=== PATIENT | female | born 1945 | race Caucasian/White ===

== ENCOUNTER 2019-11-12 10:37 | Inpatient (IN) ==
[2019-11-12] MEDS ORDERED: PIPERACILLIN/TAZOBACTAM 3,375 MG in SODIUM CHLORIDE 0.9% 100 ML IV STA (11:02)
[2019-11-12] MEDS ORDERED: SODIUM CHLORIDE 0.9% 1,000 ML IV STA (11:02)
[2019-11-12] MEDS ORDERED: VANCOMYCIN INJ 1,000 MG in SODIUM CHLORIDE 0.9% 250 ML IV STA (11:02)
[2019-11-12 11:50] LABS: Basophils % 0.5 % (0.0-0.8); Eosinophils % 0.4 % (0.00-10.9); Hematocrit 30.8 VOL% (35.7-47.0); Hemoglobin 10.1 GM/DL (12.0-16.0); Immature Granulocytes % 0.7 %; Immature Granulocytes Absolute 0.06 #; Lymphocytes # 0.9 10*3/uL (1.4-4.0); Lymphocytes % 10.7 % (21.3-54.2); Mean Corpuscular HGB Conc 32.8 GM/DL (32-36); Mean Platelet Volume 9.6 FL (9.6-12.0); Neutrophils % 71.7 % (38.7-73.9); Platelet Count 217 T/CUMM (130-400); Red Cell Distribution Width 14.9 % (9.3-17.3); White Blood Count 8.2 T/CUMM (4-12)
[2019-11-12 12:11] LABS: INR 1.2; PT Patient Result 12.3 SECS (9.8-11.9)
[2019-11-12 12:18] LABS: Alanine Aminotransferase 19 U/L (13-56); Albumin 2.8 G/DL (3.4-5.0); Alkaline Phosphatase 152 U/L (45-117); Amylase 26 U/L (25-115); Aspartate Amino Transferase 51 U/L (0-37); Blood Urea Nitrogen 30 MG/DL (7-18); Calcium 13.6 MG/DL (8.5-10.1); Estimated Glom Filtration Rate 22 ML/MIN; Ferritin 310.4 ng/ml (8-252); Glucose 107 MG/DL (74-106); Osmolality,Calculated 262.1 MOS/KG (273-304); Total Protein 6.5 G/DL (6.4-8.3)
[2019-11-12 12:19] LABS: Troponin I 0.286 NG/ML (0.00-0.045)
[2019-11-12 12:31] LABS: Anisocytosis 1+; Band Neutrophils 9 % (0-10); Lymphocytes 6 % (20-55); Platelet Estimate Normal; Segmented Neutrophils 68 % (50-85); Total Cells Counted 100
[2019-11-12 12:32] LABS: Macrocytosis Slight
[2019-11-12] MEDS ORDERED: VANCOMYCIN 1,000 MG VIAL ONE (13:19)
[2019-11-12] MEDS ORDERED: DEXTROSE 10% 250 ML BAG IV PRN (14:09)
[2019-11-12] MEDS ORDERED: ONDANSETRON 4 MG/2 ML VIAL IV PRN (14:09)
[2019-11-12] MEDS ORDERED: GLUCAGON 1 MG VIAL IM PRN (14:09)
[2019-11-12 15:11] LABS: Amorphous Crystals,Urine Occasional /HPF (Few); Apearance,Urine CLOUDY (Clear); Bacteria,Urine Many /HPF (Few); Bilirubin,Urine Negative (Negative); Blood, Urine Negative (Negative); Glucose,Urine (UA) Negative (Negative); Hyaline Casts,Urine 7 /LPF (0-3); Ketones,Urine Negative (Negative); Nitrite,Urine Negative (Negative); Protein,Urine 30 MG/DL; Urine Color Yellow (Yellow); Urine Urobilinogen < 2.0 EU/DL (0.2-1.0)
[2019-11-12 16:47] LABS: Albumin 2.9 G/DL (3.4-5.0); Total Protein 6.5 G/DL (6.4-8.3)
[2019-11-12] MEDS: SODIUM CHLORIDE 0.9% 1,000 ML IV SCH (17:58)
[2019-11-12 17:59] LABS: INR 1.2; PT Patient Result 12.4 SECS (9.8-11.9)
[2019-11-12] MEDS ORDERED: ZOLEDRONIC ACID 4 MG in PREMIX 1 EACH IV ONE (18:00)
[2019-11-12] MEDS: PIPERACILLIN/TAZOBACTAM 3,375 MG in SODIUM CHLORIDE 0.9% 100 ML IV SCH (21:23)
[2019-11-12] MEDS: ENOXAPARIN 30 MG/0.3 ML SYRINGE SUBCUT SCH (21:23)
[2019-11-13] MEDS: PIPERACILLIN/TAZOBACTAM 3,375 MG in SODIUM CHLORIDE 0.9% 100 ML IV SCH ×3 (05:08→20:26)
[2019-11-13] MEDS: SODIUM CHLORIDE 0.9% 1,000 ML IV SCH ×2 (05:08→12:25)
[2019-11-13 06:30] LABS: Basophils % 0.5 % (0.0-0.8); Eosinophils % 0.1 % (0.00-10.9); Hematocrit 27.6 VOL% (35.7-47.0); Hemoglobin 9.3 GM/DL (12.0-16.0); Immature Granulocytes % 0.7 %; Immature Granulocytes Absolute 0.05 #; Lymphocytes # 1.4 10*3/uL (1.4-4.0); Lymphocytes % 18.6 % (21.3-54.2); Mean Corpuscular HGB Conc 33.7 GM/DL (32-36); Mean Corpuscular Volume 86.8 FL (87-102); Mean Platelet Volume 9.9 FL (9.6-12.0); Monocytes % 17.2 % (1.7-12.7); Neutrophils % 62.9 % (38.7-73.9); Platelet Count 191 T/CUMM (130-400); Red Blood Count 3.18 MC/CUMM (3.8-5.5); White Blood Count 7.5 T/CUMM (4-12)
[2019-11-13 06:47] LABS: Alanine Aminotransferase 17 U/L (13-56); Albumin 2.5 G/DL (3.4-5.0); Alkaline Phosphatase 121 U/L (45-117); Aspartate Amino Transferase 57 U/L (0-37); Blood Urea Nitrogen 30 MG/DL (7-18); Calcium 12.4 MG/DL (8.5-10.1); Estimated Glom Filtration Rate 34 ML/MIN; Glucose 63 MG/DL (74-106); HDL Cholesterol < 10 MG/DL (40-60); Osmolality,Calculated 261.9 MOS/KG (273-304); Total Protein 5.7 G/DL (6.4-8.3); Triglycerides 266 MG/DL (2-150); VLDL CHOLESTEROL 53.2 MG/DL
[2019-11-13 07:11] LABS: Band Neutrophils 2 % (0-10); Hypochromasia 2+; Lymphocytes 18 % (20-55); Microcytosis Slight; Segmented Neutrophils 65 % (50-85); Total Cells Counted 100
[2019-11-13 07:12] LABS: Platelet Estimate Normal; Polychromasia Slight; Schistocytes Slight
[2019-11-13] MEDS: PANTOPRAZOLE 40 MG TABLET PO SCH (10:09)
[2019-11-13] MEDS: POTASSIUM CHLORIDE 20 MEQ TABLET PO PRN ×4 (12:25→19:00)
[2019-11-13] MEDS ORDERED: MAGNESIUM SULF RIDER 4 GM in PREMIX 1 EACH IV PRN (14:54)
[2019-11-13] MEDS ORDERED: MAGNESIUM SULF RIDER 2 GM in PREMIX 1 EACH IV PRN (14:54)
[2019-11-13 19:42] LABS: Total Protein,Pleural Fluid 3.4 G/DL
[2019-11-13 20:01] LABS: RBC,Pleural Fluid > 100000 T/CUMM
[2019-11-13] MEDS: ENOXAPARIN 30 MG/0.3 ML SYRINGE SUBCUT SCH (20:26)
[2019-11-14] MEDS: PIPERACILLIN/TAZOBACTAM 3,375 MG in SODIUM CHLORIDE 0.9% 100 ML IV SCH ×3 (03:20→21:12)
[2019-11-14 03:39] LABS: Basophils % 0.3 % (0.0-0.8); Hematocrit 26.6 VOL% (35.7-47.0); Hemoglobin 8.7 GM/DL (12.0-16.0); Immature Granulocytes % 0.8 %; Immature Granulocytes Absolute 0.06 #; Lymphocytes # 1.6 10*3/uL (1.4-4.0); Lymphocytes % 19.8 % (21.3-54.2); Mean Corpuscular HGB Conc 32.7 GM/DL (32-36); Mean Platelet Volume 10.1 FL (9.6-12.0); Monocytes % 15.3 % (1.7-12.7); Neutrophils % 63.8 % (38.7-73.9); Platelet Count 180 T/CUMM (130-400); Red Blood Count 2.99 MC/CUMM (3.8-5.5); Red Cell Distribution Width 15.6 % (9.3-17.3); White Blood Count 7.9 T/CUMM (4-12)
[2019-11-14 04:16] LABS: Albumin 2.5 G/DL (3.4-5.0); Bilirubin,Total 1.2 MG/DL (0.2-1.0); Calcium 12.2 MG/DL (8.5-10.1); Osmolality,Calculated 274.2 MOS/KG (273-304); Total Protein 5.5 G/DL (6.4-8.3)
[2019-11-14 05:21] LABS: Band Neutrophils 2 % (0-10); Lymphocytes 16 % (20-55); Segmented Neutrophils 67 % (50-85); Total Cells Counted 100
[2019-11-14 05:22] LABS: Anisocytosis 1+; Platelet Estimate Normal
[2019-11-14] MEDS: PANTOPRAZOLE 40 MG TABLET PO SCH (09:23)
[2019-11-14] MEDS: SODIUM CHLORIDE 0.9% 1,000 ML IV SCH ×3 (11:11→16:35)
[2019-11-14] MEDS: LOPERAMIDE 2 MG CAPSULE PO PRN ×2 (11:12→17:34)
[2019-11-14] MEDS: ENOXAPARIN 30 MG/0.3 ML SYRINGE SUBCUT SCH (21:12)
[2019-11-15] MEDS: PIPERACILLIN/TAZOBACTAM 3,375 MG in SODIUM CHLORIDE 0.9% 100 ML IV SCH ×3 (03:54→21:00)
[2019-11-15 06:30] LABS: Basophils % 0.5 % (0.0-0.8); Hematocrit 25.9 VOL% (35.7-47.0); Hemoglobin 8.5 GM/DL (12.0-16.0); Immature Granulocytes % 1.8 %; Immature Granulocytes Absolute 0.11 #; Lymphocytes # 1.5 10*3/uL (1.4-4.0); Lymphocytes % 23.4 % (21.3-54.2); Mean Corpuscular HGB Conc 32.8 GM/DL (32-36); Mean Corpuscular Volume 88.4 FL (87-102); Mean Platelet Volume 10.1 FL (9.6-12.0); Monocytes % 11.5 % (1.7-12.7); Neutrophils % 62.8 % (38.7-73.9); Platelet Count 137 T/CUMM (130-400); Red Blood Count 2.93 MC/CUMM (3.8-5.5); White Blood Count 6.2 T/CUMM (4-12)
[2019-11-15] MEDS: SODIUM CHLORIDE 0.9% 1,000 ML IV SCH ×3 (06:36→17:05)
[2019-11-15 06:47] LABS: Albumin 2.3 G/DL (3.4-5.0); Bilirubin,Total 1.6 MG/DL (0.2-1.0); Calcium 11.2 MG/DL (8.5-10.1); Osmolality,Calculated 272.4 MOS/KG (273-304); Total Protein 5.4 G/DL (6.4-8.3)
[2019-11-15 07:01] LABS: Band Neutrophils 6 % (0-10); Hypochromasia 1+; Lymphocytes 19 % (20-55); Microcytosis 1+; Ovalocytes Slight; Segmented Neutrophils 67 % (50-85); Total Cells Counted 100
[2019-11-15 07:02] LABS: Platelet Estimate Adequate; Polychromasia Slight
[2019-11-15 07:03] LABS: Atypical Lymphocytes Few
[2019-11-15 08:54] LABS: Lymphocytes,Pleural Fluid 87 %; Monocytes,Pleural Fluid 7 %; Neutrophils,Pleural Fluid 6 %
[2019-11-15] MEDS: PANTOPRAZOLE 40 MG TABLET PO SCH (08:58)
[2019-11-15] MEDS: POTASSIUM CHLORIDE 20 MEQ TABLET PO PRN ×3 (08:59→14:32)
[2019-11-15] MEDS: BENZONATATE 100 MG CAPSULE PO PRN ×2 (14:33→21:01)
[2019-11-15] MEDS: ENOXAPARIN 30 MG/0.3 ML SYRINGE SUBCUT SCH (21:01)
[2019-11-16] MEDS: PIPERACILLIN/TAZOBACTAM 3,375 MG in SODIUM CHLORIDE 0.9% 100 ML IV SCH ×3 (04:14→21:44)
[2019-11-16 05:24] LABS: Basophils % 0.5 % (0.0-0.8); Eosinophils % 0.5 % (0.00-10.9); Hematocrit 24.6 VOL% (35.7-47.0); Immature Granulocytes % 3.4 %; Immature Granulocytes Absolute 0.19 #; Lymphocytes # 1.7 10*3/uL (1.4-4.0); Lymphocytes % 31.2 % (21.3-54.2); Mean Corpuscular HGB Conc 32.5 GM/DL (32-36); Mean Corpuscular Volume 90.4 FL (87-102); Mean Platelet Volume 10.1 FL (9.6-12.0); Monocytes % 12.7 % (1.7-12.7); Neutrophils % 51.7 % (38.7-73.9); Platelet Count 135 T/CUMM (130-400); Red Blood Count 2.72 MC/CUMM (3.8-5.5); Red Cell Distribution Width 16.5 % (9.3-17.3); White Blood Count 5.5 T/CUMM (4-12)
[2019-11-16 05:44] LABS: Calcium 10.3 MG/DL (8.5-10.1)
[2019-11-16 05:59] LABS: Atypical Lymphocytes Few; Band Neutrophils 5 % (0-10); Lymphocytes 23 % (20-55); Promyelocytes 1 %; Segmented Neutrophils 60 % (50-85); Total Cells Counted 100
[2019-11-16 06:00] LABS: Hypochromasia 1+; Microcytosis 1+; Platelet Estimate Adequate
[2019-11-16] MEDS: PANTOPRAZOLE 40 MG TABLET PO SCH (08:51)
[2019-11-16] MEDS: BENZONATATE 100 MG CAPSULE PO PRN ×3 (08:51→21:47)
[2019-11-16] MEDS: SODIUM CHLORIDE 0.9% 1,000 ML IV SCH ×2 (08:52→08:53)
[2019-11-16] MEDS: ENOXAPARIN 30 MG/0.3 ML SYRINGE SUBCUT SCH (21:44)
[2019-11-17] MEDS: PIPERACILLIN/TAZOBACTAM 3,375 MG in SODIUM CHLORIDE 0.9% 100 ML IV SCH ×3 (03:47→20:53)
[2019-11-17 05:17] LABS: Basophils % 0.7 % (0.0-0.8); Eosinophils % 0.4 % (0.00-10.9); Hematocrit 24.7 VOL% (35.7-47.0); Immature Granulocytes % 3.3 %; Immature Granulocytes Absolute 0.15 #; Lymphocytes # 2.2 10*3/uL (1.4-4.0); Lymphocytes % 49.1 % (21.3-54.2); Mean Corpuscular HGB Conc 32.4 GM/DL (32-36); Mean Corpuscular Volume 90.5 FL (87-102); Mean Platelet Volume 9.8 FL (9.6-12.0); Monocytes % 12.4 % (1.7-12.7); Neutrophils % 34.1 % (38.7-73.9); Platelet Count 123 T/CUMM (130-400); Red Blood Count 2.73 MC/CUMM (3.8-5.5); Red Cell Distribution Width 16.7 % (9.3-17.3); White Blood Count 4.5 T/CUMM (4-12)
[2019-11-17 05:23] LABS: Calcium 10.6 MG/DL (8.5-10.1); Osmolality,Calculated 281.5 MOS/KG (273-304)
[2019-11-17 06:20] LABS: Atypical Lymphocytes Few; Eosinophils 1 % (0-10); Hypochromasia 1+; Lymphocytes 58 % (20-55); Microcytosis 1+; Ovalocytes Slight; Polychromasia Slight; Segmented Neutrophils 33 % (50-85); Total Cells Counted 100
[2019-11-17 06:21] LABS: Platelet Estimate Adequate
[2019-11-17] MEDS ORDERED: TISSUE ADHESIVE 1 EACH APPLICATOR TOP ONE (10:20)
[2019-11-17] MEDS ORDERED: propofoL 200 MG/20 ML VIAL IV ONE (10:59)
[2019-11-17] MEDS ORDERED: LIDOCAINE 2% 5 ML VIAL ONE (10:59)
[2019-11-17] MEDS ORDERED: fentaNYL 100 MCG/2 ML VIAL ONE (11:00)
[2019-11-17] MEDS ORDERED: MIDAZOLAM 2 MG/2 ML VIAL ONE (11:00)
[2019-11-17] MEDS ORDERED: SUCCINYLCHOLINE 200 MG/10 ML VIAL ONE (11:01)
[2019-11-17] MEDS ORDERED: PHENYLEPHRINE 1 MG/10 ML SYRINGE IV ONE (11:01)
[2019-11-17] MEDS ORDERED: SEVOFLURANE 1 UNIT/15 MINUTE INH ONE (11:01)
[2019-11-17] MEDS ORDERED: ROCURONIUM 100 MG/10 ML VIAL IV ONE (11:01)
[2019-11-17] MEDS ORDERED: ETOMIDATE 40 MG/20 ML VIAL IV ONE (11:01)
[2019-11-17] MEDS: SODIUM CHLORIDE 0.9% 1,000 ML IV SCH (13:25)
[2019-11-17] MEDS: PANTOPRAZOLE 40 MG TABLET PO SCH (13:25)
[2019-11-18] MEDS: PIPERACILLIN/TAZOBACTAM 3,375 MG in SODIUM CHLORIDE 0.9% 100 ML IV SCH ×3 (04:15→20:48)
[2019-11-18 04:59] LABS: Basophils % 0.5 % (0.0-0.8); Eosinophils % 0.5 % (0.00-10.9); Hematocrit 22.9 VOL% (35.7-47.0); Hemoglobin 7.4 GM/DL (12.0-16.0); Immature Granulocytes Absolute 0.08 #; Lymphocytes # 1.9 10*3/uL (1.4-4.0); Lymphocytes % 46.4 % (21.3-54.2); Mean Corpuscular HGB Conc 32.3 GM/DL (32-36); Mean Corpuscular Volume 89.8 FL (87-102); Mean Platelet Volume 9.7 FL (9.6-12.0); Monocytes % 14.3 % (1.7-12.7); Neutrophils % 36.3 % (38.7-73.9); Platelet Count 114 T/CUMM (130-400); Red Blood Count 2.55 MC/CUMM (3.8-5.5); Red Cell Distribution Width 16.8 % (9.3-17.3); White Blood Count 4.1 T/CUMM (4-12)
[2019-11-18 05:20] LABS: Calcium 10.1 MG/DL (8.5-10.1); Osmolality,Calculated 283.3 MOS/KG (273-304)
[2019-11-18 05:24] LABS: Atypical Lymphocytes Few; Eosinophils 3 % (0-10); Hypochromasia 1+; Lymphocytes 49 % (20-55); Microcytosis 1+; Ovalocytes Slight; Segmented Neutrophils 32 % (50-85); Total Cells Counted 100
[2019-11-18 05:25] LABS: Platelet Estimate Adequate
[2019-11-18] MEDS: LACTATED RINGERS 1,000 ML IV SCH (08:18)
[2019-11-18] MEDS ORDERED: LIDOCAINE 2% 5 ML VIAL ONE (09:00)
[2019-11-18] MEDS ORDERED: propofoL 200 MG/20 ML VIAL IV ONE (09:00)
[2019-11-18] MEDS: PANTOPRAZOLE 40 MG TABLET PO SCH (11:35)
[2019-11-18] MEDS: SODIUM CHLORIDE 0.9% 1,000 ML IV SCH ×2 (13:23→19:49)
[2019-11-19] MEDS: PIPERACILLIN/TAZOBACTAM 3,375 MG in SODIUM CHLORIDE 0.9% 100 ML IV SCH ×3 (03:57→20:51)
[2019-11-19] MEDS: SODIUM CHLORIDE 0.9% 1,000 ML IV SCH (03:58)
[2019-11-19] MEDS: PANTOPRAZOLE 40 MG TABLET PO SCH (09:16)
[2019-11-19 13:33] LABS: Hematocrit 28.6 VOL% (35.7-47.0)
[2019-11-19] MEDS: allopurinoL 100 MG TABLET PO SCH (13:41)
[2019-11-20] MEDS: PIPERACILLIN/TAZOBACTAM 3,375 MG in SODIUM CHLORIDE 0.9% 100 ML IV SCH (04:14)
[2019-11-20 05:45] LABS: Basophils % 0.4 % (0.0-0.8); Eosinophils # 0.1 10*3/uL (0.0-0.87); Eosinophils % 1.4 % (0.00-10.9); Hematocrit 24.7 VOL% (35.7-47.0); Hemoglobin 7.9 GM/DL (12.0-16.0); Immature Granulocytes % 2.7 %; Immature Granulocytes Absolute 0.15 #; Lymphocytes # 1.8 10*3/uL (1.4-4.0); Lymphocytes % 32.4 % (21.3-54.2); Mean Corpuscular Volume 90.1 FL (87-102); Mean Platelet Volume 9.4 FL (9.6-12.0); Monocytes % 13.6 % (1.7-12.7); Neutrophils % 49.5 % (38.7-73.9); Platelet Count 160 T/CUMM (130-400); Red Blood Count 2.74 MC/CUMM (3.8-5.5); Red Cell Distribution Width 16.5 % (9.3-17.3); White Blood Count 5.5 T/CUMM (4-12)
[2019-11-20 06:16] LABS: Albumin 2.8 G/DL (3.4-5.0); Calcium 10.1 MG/DL (8.5-10.1); Osmolality,Calculated 279.3 MOS/KG (273-304)
[2019-11-20] MEDS: LACTATED RINGERS 1,000 ML IV SCH (09:21)
[2019-11-20] MEDS: allopurinoL 100 MG TABLET PO SCH (09:22)
[2019-11-20] MEDS: PANTOPRAZOLE 40 MG TABLET PO SCH (09:22)
[2019-11-20 12:17] VITALS: BP 174/83
== END 2019-11-20 12:45 | disposition home or self-care (01) | DRG 824 ==
LOC: N.ED 10:37 → N.EDINP 14:09 → SUATTDRO 14:09 → N.EDINP 16:35 → N.TELEN 16:51 → N.4E 11-18 13:22
PROVIDERS: ADMIT Internal Medicine; ATTEND Internal Medicine Geriatric Medicine

== ENCOUNTER 2022-03-22 15:17 | Inpatient (IN) ==
[2022-03-22 17:34] LABS: Basophils % 0.5 % (0.0-0.8); Hematocrit 23.3 VOL% (35.7-47.0); Hemoglobin 7.6 GM/DL (12.0-16.0); Immature Granulocytes % 30.2 %; Immature Granulocytes Absolute 0.62 #; Lymphocytes # 0.3 10*3/uL (1.4-4.0); Lymphocytes % 14.1 % (21.3-54.2); Mean Corpuscular HGB Conc 32.6 GM/DL (32-36); Mean Corpuscular Volume 108.9 FL (87-102); Mean Platelet Volume 10.1 FL (9.6-12.0); Monocytes # 0.2 10*3/uL (0.11-0.8); Monocytes % 10.2 % (1.7-12.7); Red Blood Count 2.14 MC/CUMM (3.8-5.5); Red Cell Distribution Width 17.3 % (9.3-17.3); White Blood Count 2.1 T/CUMM (4-12)
[2022-03-22 17:37] LABS: Platelet Count 33 T/CUMM (130-400)
[2022-03-22 17:43] LABS: PT Patient Result 10.9 SECS (10.1-12.1); Partial Thromboplastin Time 29.4 SECS (23.7-32.9)
[2022-03-22 17:52] LABS: Bacteria,Urine Many /HPF (Few); Bilirubin,Urine Negative (Negative); Blood, Urine Small mg/dL (Negative); Glucose,Urine (UA) Negative (Negative); Ketones,Urine 5 mg/dL (Negative); Mucus,Urine Occasional /LPF (Occasional); Nitrite,Urine Positive (Negative); Protein,Urine 30 mg/dL (Negative); RBC,Urine 5 /HPF (0-4); Urine Appearance Slightly Hazy (Clear); Urine Color Amber (Yellow); Urine Specific Gravity 1.018 (1.001-1.035); Urine Urobilinogen < 2.0 eU/dL (<2.0)
[2022-03-22] MEDS ORDERED: cefTRIAXone 1,000 MG VIAL ONE (18:05)
[2022-03-22] MEDS ORDERED: SODIUM CHLORIDE 0.9% 100 ML IV ONE (18:05)
[2022-03-22 18:07] LABS: Band Neutrophils 36 % (0-10); Lymphocytes 21 % (20-55); Metamyelocytes 15 %; Myelocytes 3 %; Total Cells Counted 100; Toxic Granulation 1+
[2022-03-22 18:08] LABS: Atypical Lymphocytes 1+; Dohle Bodies Few; Tear Drop Cells Slight
[2022-03-22 18:09] LABS: Anisocytosis 1+; Platelet Estimate Decreased; Stomatocytes Slight
[2022-03-22 18:10] LABS: Spherocytes Slight
[2022-03-22] MEDS ORDERED: cefTRIAXone 1,000 MG in SODIUM CHLORIDE 0.9% 100 ML IV STA (18:20)
[2022-03-22 18:37] LABS: Albumin 2.8 G/DL (3.4-5.0); Calcium 8.9 MG/DL (8.5-10.1); Osmolality,Calculated 277.7 MOS/KG (273-304); Potassium 3.2 MMOL/L (3.5-5.1); Total Protein 5.1 G/DL (6.4-8.2)
[2022-03-22] MEDS ORDERED: ONDANSETRON 4 MG/2 ML VIAL IV PRN (19:50)
[2022-03-22] MEDS ORDERED: hydrALAZINE 20 MG/1 ML VIAL IV PRN (19:50)
[2022-03-22] MEDS ORDERED: SODIUM CHLORIDE 0.9% 1,000 ML IV PRN (19:55)
[2022-03-22] MEDS ORDERED: POTASSIUM CHLORIDE 20 MEQ TABLET PO ONE (20:01)
[2022-03-22] MEDS: LACTATED RINGERS 1,000 ML IV SCH (20:30)
[2022-03-22] MEDS: GABAPENTIN 300 MG CAPSULE PO SCH (22:17)
[2022-03-22] MEDS: valACYclovir 500 MG TABLET PO SCH (22:17)
[2022-03-22] MEDS: METOPROLOL TARTRATE 25 MG TABLET PO SCH (22:17)
[2022-03-23] MEDS ORDERED: ACETAMINOPHEN 325 MG TABLET PO PRN (03:22)
[2022-03-23] MEDS ORDERED: PRAMOXINE/HYDROCORTISONE RECTAL FOAM 10 GM CAN RECTAL PRN (03:34)
[2022-03-23] MEDS: LEVOTHYROXINE 75 MCG TABLET PO SCH (05:20)
[2022-03-23 07:15] LABS: Basophils % 0.4 % (0.0-0.8); Eosinophils % 0.4 % (0.00-10.9); Hematocrit 23.3 VOL% (35.7-47.0); Hemoglobin 7.9 GM/DL (12.0-16.0); Immature Granulocytes % 10.5 %; Immature Granulocytes Absolute 0.26 #; Lymphocytes # 0.4 10*3/uL (1.4-4.0); Lymphocytes % 14.9 % (21.3-54.2); Mean Corpuscular HGB Conc 33.9 GM/DL (32-36); Monocytes # 0.3 10*3/uL (0.11-0.8); Monocytes % 10.5 % (1.7-12.7); Neutrophils % 63.3 % (38.7-73.9); Red Blood Count 2.24 MC/CUMM (3.8-5.5); Red Cell Distribution Width 17.6 % (9.3-17.3); White Blood Count 2.5 T/CUMM (4-12)
[2022-03-23 07:21] LABS: Calcium 8.2 MG/DL (8.5-10.1); Osmolality,Calculated 282.1 MOS/KG (273-304); Potassium 3.6 MMOL/L (3.5-5.1)
[2022-03-23 07:31] LABS: Platelet Count 19 T/CUMM (130-400)
[2022-03-23 08:25] LABS: Band Neutrophils 7 % (0-10); Eosinophils 2 % (0-10); Lymphocytes 22 % (20-55); Total Cells Counted 100
[2022-03-23 08:27] LABS: Anisocytosis 1+; Microcytosis 1+; Ovalocytes Slight; Tear Drop Cells Slight
[2022-03-23 08:28] LABS: Platelet Estimate Decreased
[2022-03-23] MEDS: MULTIVITAMIN (CENTRUM) TABLET PO SCH (08:39)
[2022-03-23] MEDS: CHOLECALCIFEROL 400 UNIT TABLET PO SCH (08:40)
[2022-03-23] MEDS: METOPROLOL TARTRATE 25 MG TABLET PO SCH ×2 (08:40→21:39)
[2022-03-23] MEDS: GABAPENTIN 300 MG CAPSULE PO SCH ×3 (08:40→21:39)
[2022-03-23] MEDS: PANTOPRAZOLE 40 MG TABLET PO SCH (08:40)
[2022-03-23] MEDS: NON-FORMULARY MEDICATION (Potassium Citrate 99 mg Capsule) PO SCH (08:42)
[2022-03-23] MEDS ORDERED: MAGNESIUM SULF RIDER 2 GM/50 ML PREMIX IV ONE (09:35)
[2022-03-23] MEDS ORDERED: SODIUM CHLORIDE 0.9% 1,000 ML IV PRN (10:29)
[2022-03-23] MEDS ORDERED: FILGRASTIM-SNDZ 300 MCG/0.5 ML SYRINGE SUBCUT ONE (13:00)
[2022-03-23] MEDS: VANCOMYCIN 125 MG CAPSULE PO SCH ×2 (14:04→21:43)
[2022-03-23] MEDS: LACTATED RINGERS 1,000 ML IV SCH (21:39)
[2022-03-23] MEDS: cefTRIAXone 1,000 MG in SODIUM CHLORIDE 0.9% 100 ML IV SCH (21:39)
[2022-03-23] MEDS: valACYclovir 500 MG TABLET PO SCH (21:43)
[2022-03-24] MEDS: VANCOMYCIN 125 MG CAPSULE PO SCH ×4 (01:42→20:39)
[2022-03-24] MEDS: LEVOTHYROXINE 75 MCG TABLET PO SCH (05:48)
[2022-03-24 06:29] LABS: Basophils % 0.3 % (0.0-0.8); Eosinophils # 0.1 10*3/uL (0.0-0.87); Eosinophils % 2.8 % (0.00-10.9); Hematocrit 25.9 VOL% (35.7-47.0); Hemoglobin 8.7 GM/DL (12.0-16.0); Immature Granulocytes % 31.1 %; Immature Granulocytes Absolute 1.09 #; Lymphocytes # 0.5 10*3/uL (1.4-4.0); Lymphocytes % 13.1 % (21.3-54.2); Mean Corpuscular HGB Conc 33.6 GM/DL (32-36); Mean Corpuscular Volume 99.2 FL (87-102); Mean Platelet Volume 11.5 FL (9.6-12.0); Monocytes # 0.5 10*3/uL (0.11-0.8); Monocytes % 13.4 % (1.7-12.7); Neutrophils % 39.3 % (38.7-73.9); Red Blood Count 2.61 MC/CUMM (3.8-5.5); Red Cell Distribution Width 21.1 % (9.3-17.3); White Blood Count 3.5 T/CUMM (4-12)
[2022-03-24 06:33] LABS: Platelet Count 23 T/CUMM (130-400)
[2022-03-24 06:47] LABS: Calcium 8.1 MG/DL (8.5-10.1); Osmolality,Calculated 276.4 MOS/KG (273-304); Potassium 2.8 MMOL/L (3.5-5.1)
[2022-03-24 07:57] LABS: Anisocytosis 1+; Band Neutrophils 11 % (0-10); Eosinophils 6 % (0-10); Lymphocytes 8 % (20-55); Metamyelocytes 7 %; Nucleated Red Blood Cells 1 /100 WBC (0-5); Total Cells Counted 100
[2022-03-24 07:58] LABS: Microcytosis 1+; Ovalocytes Few; Tear Drop Cells Slight
[2022-03-24 07:59] LABS: Hypochromia Slight; Platelet Estimate Decreased
[2022-03-24] MEDS: LACTATED RINGERS 1,000 ML IV SCH ×4 (08:09→11:51)
[2022-03-24] MEDS: PANTOPRAZOLE 40 MG TABLET PO SCH (08:53)
[2022-03-24] MEDS: GABAPENTIN 300 MG CAPSULE PO SCH ×3 (08:53→20:39)
[2022-03-24] MEDS: CHOLECALCIFEROL 400 UNIT TABLET PO SCH (08:53)
[2022-03-24] MEDS: METOPROLOL TARTRATE 25 MG TABLET PO SCH ×2 (08:53→20:40)
[2022-03-24] MEDS: MULTIVITAMIN (CENTRUM) TABLET PO SCH (08:53)
[2022-03-24] MEDS: NON-FORMULARY MEDICATION (Potassium Citrate 99 mg Capsule) PO SCH (08:54)
[2022-03-24] MEDS ORDERED: POTASSIUM CHLORIDE 20 MEQ TABLET PO ONE (09:28)
[2022-03-24] MEDS ORDERED: MAGNESIUM SULF RIDER 2 GM/50 ML PREMIX IV ONE (10:19)
[2022-03-24] MEDS: valACYclovir 500 MG TABLET PO SCH (20:38)
[2022-03-24] MEDS: cefTRIAXone 1,000 MG in SODIUM CHLORIDE 0.9% 100 ML IV SCH (20:39)
[2022-03-24] MEDS: CHOLESTYRAMINE/ASPARTAME 4 GM PACK PO SCH (22:52)
[2022-03-25] MEDS: VANCOMYCIN 125 MG CAPSULE PO SCH ×3 (02:47→14:30)
[2022-03-25] MEDS: LEVOTHYROXINE 75 MCG TABLET PO SCH (06:01)
[2022-03-25 06:31] LABS: Basophils % 0.3 % (0.0-0.8); Eosinophils # 0.2 10*3/uL (0.0-0.87); Eosinophils % 4.4 % (0.00-10.9); Hematocrit 26.6 VOL% (35.7-47.0); Hemoglobin 9.1 GM/DL (12.0-16.0); Immature Granulocytes % 11.1 %; Immature Granulocytes Absolute 0.43 #; Lymphocytes # 0.4 10*3/uL (1.4-4.0); Lymphocytes % 10.6 % (21.3-54.2); Mean Corpuscular HGB Conc 34.2 GM/DL (32-36); Mean Corpuscular Volume 99.6 FL (87-102); Mean Platelet Volume 10.7 FL (9.6-12.0); Monocytes # 0.5 10*3/uL (0.11-0.8); Monocytes % 12.2 % (1.7-12.7); Neutrophils % 61.4 % (38.7-73.9); Red Blood Count 2.67 MC/CUMM (3.8-5.5); Red Cell Distribution Width 20.1 % (9.3-17.3); White Blood Count 3.9 T/CUMM (4-12)
[2022-03-25 06:37] LABS: Platelet Count 25 T/CUMM (130-400)
[2022-03-25 06:52] LABS: Band Neutrophils 2 % (0-10); Eosinophils 4 % (0-10); Hypochromia Slight; Lymphocytes 9 % (20-55); Microcytosis Slight; Platelet Estimate Decreased; Total Cells Counted 100
[2022-03-25 06:54] LABS: Calcium 7.9 MG/DL (8.5-10.1); Osmolality,Calculated 278.1 MOS/KG (273-304)
[2022-03-25] MEDS: CHOLESTYRAMINE/ASPARTAME 4 GM PACK PO SCH (10:06)
[2022-03-25] MEDS: CHOLECALCIFEROL 400 UNIT TABLET PO SCH (10:07)
[2022-03-25] MEDS: MULTIVITAMIN (CENTRUM) TABLET PO SCH (10:07)
[2022-03-25] MEDS: METOPROLOL TARTRATE 25 MG TABLET PO SCH (10:07)
[2022-03-25] MEDS: PANTOPRAZOLE 40 MG TABLET PO SCH (10:07)
[2022-03-25] MEDS: GABAPENTIN 300 MG CAPSULE PO SCH ×2 (10:07→14:30)
[2022-03-25] MEDS: NON-FORMULARY MEDICATION (Potassium Citrate 99 mg Capsule) PO SCH (10:36)
[2022-03-25] MEDS ORDERED: POTASSIUM CHLORIDE 20 MEQ TABLET PO ONE (10:40)
[2022-03-25] MEDS ORDERED: ERTAPENEM 1,000 MG in SODIUM CHLORIDE 0.9% 100 ML IV SCH (12:00)
[2022-03-25 12:11] VITALS: BP 115/53
[2022-03-26] MEDS ORDERED: FLUCONAZOLE 100 MG TABLET PO SCH (09:00)
== END 2022-03-25 17:30 | disposition home health service (06) | DRG 371 ==
LOC: N.EDINP 15:17 → N.ED 15:17 → SUATTDRO 20:08 → N.TELES 20:16 → N.TELEN 03-23 14:14
PROVIDERS: ADMIT Family Medicine; ATTEND Internal Medicine

== ENCOUNTER 2022-04-10 08:19 | Inpatient (IN) ==
[2022-04-10 09:08] LABS: Bacteria,Urine Occasional /HPF (Few); Bilirubin,Urine Small mg/dL (Negative); Blood, Urine Small mg/dL (Negative); Glucose,Urine (UA) Negative (Negative); Ketones,Urine Negative (Negative); Mucus,Urine Occasional /LPF (Occasional); Nitrite,Urine Negative (Negative); Protein,Urine 30 mg/dL (Negative); RBC,Urine 7 /HPF (0-4); Squamous Epithelial Cell,Urine Occasional /HPF (0-10); Urine Appearance Clear (Clear); Urine Color Amber (Yellow); Urine Specific Gravity 1.025 (1.001-1.035)
[2022-04-10 09:09] LABS: Urine Urobilinogen 0.2 eU/dL (<2.0)
[2022-04-10 09:54] LABS: Basophils % 0.5 % (0.0-0.8); Eosinophils % 0.3 % (0.00-10.9); Hematocrit 33.4 VOL% (35.7-47.0); Hemoglobin 11.1 GM/DL (12.0-16.0); Immature Granulocytes % 7.4 %; Immature Granulocytes Absolute 0.27 #; Lymphocytes # 1.1 10*3/uL (1.4-4.0); Lymphocytes % 29.4 % (21.3-54.2); Mean Corpuscular HGB Conc 33.2 GM/DL (32-36); Mean Corpuscular Volume 103.4 FL (87-102); Mean Platelet Volume 10.3 FL (9.6-12.0); Monocytes # 0.5 10*3/uL (0.11-0.8); Monocytes % 12.8 % (1.7-12.7); Neutrophils % 49.6 % (38.7-73.9); Red Blood Count 3.23 MC/CUMM (3.8-5.5); White Blood Count 3.7 T/CUMM (4-12)
[2022-04-10 09:56] LABS: Platelet Count 95 T/CUMM (130-400)
[2022-04-10 10:12] LABS: Albumin 3.6 G/DL (3.4-5.0); Bilirubin,Total 2.9 MG/DL (0.20-1.00); Calcium 9.8 MG/DL (8.5-10.1); Osmolality,Calculated 278.5 MOS/KG (273-304); Potassium 3.9 MMOL/L (3.5-5.1)
[2022-04-10 10:14] LABS: Anisocytosis 1+; Band Neutrophils 4 % (0-10); Lymphocytes 36 % (20-55); Microcytosis 1+; Total Cells Counted 100
[2022-04-10 10:15] LABS: Ovalocytes Slight; Platelet Estimate Decreased
[2022-04-10] MEDS ORDERED: MORPHINE 2 MG/1 ML SYRINGE IV STA (11:15)
[2022-04-10] MEDS ORDERED: ONDANSETRON 4 MG/2 ML VIAL IV PRN (12:14)
[2022-04-10] MEDS ORDERED: HYDROmorphone 1 MG/1 ML SYRINGE IV PRN (12:14)
[2022-04-10] MEDS ORDERED: PIPERACILLIN/TAZOBACTAM 3,375 MG in SODIUM CHLORIDE 0.9% 100 ML IV SCH (12:30)
[2022-04-10] MEDS ORDERED: hydrALAZINE 20 MG/1 ML VIAL IV PRN (12:49)
[2022-04-10] MEDS ORDERED: ACETAMINOPHEN 325 MG TABLET PO PRN (12:49)
[2022-04-10] MEDS ORDERED: DIPHENOXYLATE/ATROPINE 2.5-0.025 MG TABLET PO PRN (12:53)
[2022-04-10] MEDS ORDERED: PANTOPRAZOLE 40 MG TABLET PO SCH (13:00)
[2022-04-10] MEDS: GABAPENTIN 300 MG CAPSULE PO SCH ×2 (16:07→22:11)
[2022-04-10] MEDS ORDERED: FILGRASTIM-SNDZ 480 MCG/0.8 ML SYRINGE SUBCUT ONE (21:00)
[2022-04-10] MEDS: cefTRIAXone 1,000 MG in SODIUM CHLORIDE 0.9% 100 ML IV SCH (22:09)
[2022-04-10] MEDS: METOPROLOL TARTRATE 25 MG TABLET PO SCH (22:11)
[2022-04-10] MEDS: ASCORBIC ACID 500 MG TABLET PO SCH (22:11)
[2022-04-10] MEDS: NON-FORMULARY MEDICATION (Calcium-Magnesium-Zinc 333-133-5 mg Tablet) PO SCH (22:12)
[2022-04-10] MEDS: NON-FORMULARY MEDICATION (Milk Thistle 500 mg Capsule) PO SCH (22:12)
[2022-04-11] MEDS: SODIUM CHLORIDE 0.9% 1,000 ML IV SCH ×2 (00:22→19:38)
[2022-04-11 05:11] LABS: Basophils % 0.5 % (0.0-0.8); Eosinophils # 0.1 10*3/uL (0.0-0.87); Eosinophils % 1.6 % (0.00-10.9); Hematocrit 28.8 VOL% (35.7-47.0); Hemoglobin 9.4 GM/DL (12.0-16.0); Immature Granulocytes % 9.1 %; Lymphocytes # 0.8 10*3/uL (1.4-4.0); Lymphocytes % 17.5 % (21.3-54.2); Mean Corpuscular HGB Conc 32.6 GM/DL (32-36); Mean Corpuscular Volume 107.5 FL (87-102); Mean Platelet Volume 10.5 FL (9.6-12.0); Monocytes # 0.9 10*3/uL (0.11-0.8); Monocytes % 19.5 % (1.7-12.7); Neutrophils % 51.8 % (38.7-73.9); Platelet Count 76 T/CUMM (130-400); Red Blood Count 2.68 MC/CUMM (3.8-5.5); Red Cell Distribution Width 21.1 % (9.3-17.3); White Blood Count 4.4 T/CUMM (4-12)
[2022-04-11 05:14] LABS: INR 1.1; PT Patient Result 11.9 SECS (10.1-12.1)
[2022-04-11 05:30] LABS: Albumin 2.8 G/DL (3.4-5.0); Bilirubin,Total 1.5 MG/DL (0.20-1.00); Calcium 8.6 MG/DL (8.5-10.1); Osmolality,Calculated 277.4 MOS/KG (273-304); Potassium 3.5 MMOL/L (3.5-5.1); Total Protein 4.8 G/DL (6.4-8.2)
[2022-04-11 05:38] LABS: Anisocytosis 1+; Band Neutrophils 7 % (0-10); Eosinophils 5 % (0-10); Lymphocytes 12 % (20-55); Microcytosis 1+; Myelocytes 1 %; Ovalocytes Few; Total Cells Counted 100
[2022-04-11 05:39] LABS: Hypochromia Slight; Platelet Estimate Decreased; Tear Drop Cells Slight
[2022-04-11] MEDS: LEVOTHYROXINE 75 MCG TABLET PO SCH (06:10)
[2022-04-11] MEDS: LACTATED RINGERS 1,000 ML IV SCH (07:48)
[2022-04-11] MEDS ORDERED: INDOMETHACIN SUPP 50 MG SUPP RECTAL ONE ×2 (08:06)
[2022-04-11] MEDS ORDERED: ePHEDrine 50 MG/ML VIAL ONE (08:14)
[2022-04-11] MEDS ORDERED: fentaNYL 100 MCG/2 ML VIAL ONE (08:14)
[2022-04-11] MEDS ORDERED: ROCURONIUM 50 MG/5 ML VIAL IV ONE (08:45)
[2022-04-11] MEDS ORDERED: ONDANSETRON 4 MG/2 ML VIAL ONE (08:45)
[2022-04-11] MEDS ORDERED: SUCCINYLCHOLINE 200 MG/10 ML VIAL ONE (08:45)
[2022-04-11] MEDS ORDERED: propofoL 200 MG/20 ML VIAL IV ONE (08:45)
[2022-04-11] MEDS ORDERED: SEVOFLURANE 1 UNIT/15 MINUTE INH ONE (08:45)
[2022-04-11] MEDS ORDERED: LIDOCAINE 2% 5 ML VIAL ONE (08:45)
[2022-04-11] MEDS ORDERED: PHENYLEPHRINE 1 MG/10 ML SYRINGE IV ONE (08:45)
[2022-04-11] MEDS: GABAPENTIN 300 MG CAPSULE PO SCH ×3 (12:09→21:21)
[2022-04-11] MEDS: ASCORBIC ACID 500 MG TABLET PO SCH ×2 (12:09→21:21)
[2022-04-11] MEDS: POTASSIUM CHLORIDE 10 MEQ TABLET PO SCH (12:09)
[2022-04-11] MEDS: METOPROLOL TARTRATE 25 MG TABLET PO SCH ×2 (12:09→21:21)
[2022-04-11] MEDS: CHOLECALCIFEROL 400 UNIT TABLET PO SCH (12:09)
[2022-04-11] MEDS: MULTIVITAMIN (CENTRUM) TABLET PO SCH (12:09)
[2022-04-11] MEDS: valACYclovir 500 MG TABLET PO SCH (12:09)
[2022-04-11] MEDS: allopurinoL 300 MG TABLET PO SCH (12:10)
[2022-04-11] MEDS: NON-FORMULARY MEDICATION (Calcium-Magnesium-Zinc 333-133-5 mg Tablet) PO SCH ×2 (12:11→21:22)
[2022-04-11] MEDS: NON-FORMULARY MEDICATION (Milk Thistle 500 mg Capsule) PO SCH ×2 (12:11→21:22)
[2022-04-11] MEDS ORDERED: SODIUM CHLORIDE 0.9% 1,000 ML IV PRN (15:31)
[2022-04-11] MEDS: cefTRIAXone 1,000 MG in SODIUM CHLORIDE 0.9% 100 ML IV SCH (21:22)
[2022-04-12] MEDS: SODIUM CHLORIDE 0.9% 1,000 ML IV SCH ×2 (03:27→14:00)
[2022-04-12 05:53] LABS: Albumin 2.8 G/DL (3.4-5.0); Bilirubin,Total 0.9 MG/DL (0.20-1.00); Calcium 8.4 MG/DL (8.5-10.1); Potassium 3.4 MMOL/L (3.5-5.1); Total Protein 4.8 G/DL (6.4-8.2)
[2022-04-12 05:56] LABS: Basophils % 0.4 % (0.0-0.8); Eosinophils # 0.2 10*3/uL (0.0-0.87); Eosinophils % 4.6 % (0.00-10.9); Hematocrit 26.1 VOL% (35.7-47.0); Hemoglobin 8.5 GM/DL (12.0-16.0); Immature Granulocytes % 10.1 %; Immature Granulocytes Absolute 0.49 #; Lymphocytes # 0.6 10*3/uL (1.4-4.0); Mean Corpuscular HGB Conc 32.6 GM/DL (32-36); Mean Corpuscular Volume 108.3 FL (87-102); Mean Platelet Volume 10.5 FL (9.6-12.0); Monocytes # 0.8 10*3/uL (0.11-0.8); Monocytes % 15.5 % (1.7-12.7); Neutrophils % 57.4 % (38.7-73.9); Platelet Count 79 T/CUMM (130-400); Red Blood Count 2.41 MC/CUMM (3.8-5.5); Red Cell Distribution Width 21.1 % (9.3-17.3); White Blood Count 4.8 T/CUMM (4-12)
[2022-04-12] MEDS ORDERED: INDOCYANINE GREEN 25 MG VIAL IV ONE (06:00)
[2022-04-12] MEDS: LEVOTHYROXINE 75 MCG TABLET PO SCH (06:23)
[2022-04-12 06:53] LABS: Band Neutrophils 6 % (0-10); Eosinophils 5 % (0-10); Hypochromia Slight; Lymphocytes 10 % (20-55); Metamyelocytes 4 %; Myelocytes 1 %; Total Cells Counted 100
[2022-04-12 06:54] LABS: Anisocytosis 1+; Ovalocytes Slight
[2022-04-12 06:55] LABS: Platelet Estimate Decreased; Tear Drop Cells Slight
[2022-04-12] MEDS ORDERED: MAGNESIUM SULF RIDER 2 GM/50 ML PREMIX IV ONE (07:39)
[2022-04-12] MEDS ORDERED: POTASSIUM CHLORIDE 20 MEQ TABLET PO ONE (10:00)
[2022-04-12] MEDS ORDERED: fentaNYL 100 MCG/2 ML VIAL ONE (10:16)
[2022-04-12] MEDS: NON-FORMULARY MEDICATION (Calcium-Magnesium-Zinc 333-133-5 mg Tablet) PO SCH ×2 (10:16→22:42)
[2022-04-12] MEDS: NON-FORMULARY MEDICATION (Milk Thistle 500 mg Capsule) PO SCH ×2 (10:17→22:42)
[2022-04-12] MEDS: ASCORBIC ACID 500 MG TABLET PO SCH ×2 (10:17→22:38)
[2022-04-12] MEDS: MULTIVITAMIN (CENTRUM) TABLET PO SCH (10:17)
[2022-04-12] MEDS: POTASSIUM CHLORIDE 10 MEQ TABLET PO SCH (10:17)
[2022-04-12] MEDS: GABAPENTIN 300 MG CAPSULE PO SCH ×3 (10:17→22:38)
[2022-04-12] MEDS ORDERED: ROCURONIUM 50 MG/5 ML VIAL IV ONE (10:24)
[2022-04-12] MEDS ORDERED: LIDOCAINE 2% 5 ML VIAL ONE ×2 (10:24→10:27)
[2022-04-12] MEDS ORDERED: SEVOFLURANE 1 UNIT/15 MINUTE INH ONE ×2 (10:24→12:26)
[2022-04-12] MEDS ORDERED: ONDANSETRON 4 MG/2 ML VIAL ONE (10:24)
[2022-04-12] MEDS ORDERED: propofoL 200 MG/20 ML VIAL IV ONE (10:24)
[2022-04-12] MEDS ORDERED: BUPIVACAINE MPF 0.25% 10 ML VIAL ONE (10:27)
[2022-04-12] MEDS ORDERED: TISSUE ADHESIVE 1 EACH APPLICATOR TOP ONE (12:01)
[2022-04-12] MEDS ORDERED: LABETALOL 20 MG/4 ML SYRINGE IV ONE (12:23)
[2022-04-12] MEDS ORDERED: GLYCOPYRROLATE 0.4 MG/2 ML VIAL ONE (12:23)
[2022-04-12] MEDS ORDERED: PHENYLEPHRINE 1 MG/10 ML SYRINGE IV ONE (12:23)
[2022-04-12] MEDS: LACTATED RINGERS 1,000 ML IV SCH (12:49)
[2022-04-12] MEDS ORDERED: ONDANSETRON 4 MG/2 ML VIAL IV PRN (12:51)
[2022-04-12] MEDS: HYDROmorphone 1 MG/1 ML SYRINGE IV PRN ×2 (12:55→13:05)
[2022-04-12] MEDS: METOPROLOL TARTRATE 25 MG TABLET PO SCH ×2 (13:41→22:38)
[2022-04-12] MEDS: valACYclovir 500 MG TABLET PO SCH (13:41)
[2022-04-12] MEDS: CHOLECALCIFEROL 400 UNIT TABLET PO SCH (13:41)
[2022-04-12] MEDS: allopurinoL 300 MG TABLET PO SCH (13:42)
[2022-04-12] MEDS: cefTRIAXone 1,000 MG in SODIUM CHLORIDE 0.9% 100 ML IV SCH (22:41)
[2022-04-13] MEDS: SODIUM CHLORIDE 0.9% 1,000 ML IV SCH ×2 (04:49→11:38)
[2022-04-13 06:31] LABS: Albumin 2.7 G/DL (3.4-5.0); Bilirubin,Total 0.6 MG/DL (0.20-1.00); Calcium 8.1 MG/DL (8.5-10.1); Osmolality,Calculated 276.4 MOS/KG (273-304); Potassium 3.6 MMOL/L (3.5-5.1); Total Protein 4.5 G/DL (6.4-8.2)
[2022-04-13 06:39] LABS: Basophils % 0.4 % (0.0-0.8); Eosinophils # 0.1 10*3/uL (0.0-0.87); Eosinophils % 2.5 % (0.00-10.9); Hematocrit 25.6 VOL% (35.7-47.0); Hemoglobin 8.2 GM/DL (12.0-16.0); Immature Granulocytes % 6.8 %; Immature Granulocytes Absolute 0.33 #; Lymphocytes # 0.8 10*3/uL (1.4-4.0); Lymphocytes % 17.2 % (21.3-54.2); Mean Corpuscular Volume 108.5 FL (87-102); Mean Platelet Volume 10.5 FL (9.6-12.0); Monocytes # 0.7 10*3/uL (0.11-0.8); Monocytes % 14.9 % (1.7-12.7); Neutrophils % 58.2 % (38.7-73.9); Platelet Count 83 T/CUMM (130-400); Red Blood Count 2.36 MC/CUMM (3.8-5.5); Red Cell Distribution Width 21.7 % (9.3-17.3); White Blood Count 4.8 T/CUMM (4-12)
[2022-04-13] MEDS: LEVOTHYROXINE 75 MCG TABLET PO SCH (07:07)
[2022-04-13 08:08] VITALS: BP 138/63
[2022-04-13 08:08] LABS: Anisocytosis Slight; Band Neutrophils 9 % (0-10); Eosinophils 4 % (0-10); Lymphocytes 19 % (20-55); Macrocytosis Slight; Metamyelocytes 4 %; Myelocytes 3 %; Platelet Estimate Decreased; Total Cells Counted 100
[2022-04-13 08:09] LABS: Tear Drop Cells Few
[2022-04-13] MEDS: allopurinoL 300 MG TABLET PO SCH ×2 (09:29→09:35)
[2022-04-13] MEDS: METOPROLOL TARTRATE 25 MG TABLET PO SCH (09:29)
[2022-04-13] MEDS: MULTIVITAMIN (CENTRUM) TABLET PO SCH (09:29)
[2022-04-13] MEDS: POTASSIUM CHLORIDE 10 MEQ TABLET PO SCH (09:29)
[2022-04-13] MEDS: CHOLECALCIFEROL 400 UNIT TABLET PO SCH (09:29)
[2022-04-13] MEDS: GABAPENTIN 300 MG CAPSULE PO SCH (09:30)
[2022-04-13] MEDS: NON-FORMULARY MEDICATION (Calcium-Magnesium-Zinc 333-133-5 mg Tablet) PO SCH (09:30)
[2022-04-13] MEDS: ASCORBIC ACID 500 MG TABLET PO SCH (09:30)
[2022-04-13] MEDS: valACYclovir 500 MG TABLET PO SCH (09:30)
[2022-04-13] MEDS: NON-FORMULARY MEDICATION (Milk Thistle 500 mg Capsule) PO SCH (09:33)
== END 2022-04-13 11:12 | disposition home health service (06) | DRG 418 ==
LOC: N.ED 08:19 → N.EDINP 12:49 → SUATTDRO 12:49 → N.TELES 15:21
PROVIDERS: ADMIT Internal Medicine; ATTEND Family Medicine
PROC: ERCPWSP (ICD-10-PCS; 2022-04-11 11:05)